=== PATIENT | female | born 1980 | race Caucasian/White ===

== ENCOUNTER → 2016-12-08 | Outpatient (CLI) | payer BC ==
--- NOTE | 2016-12-08 12:12 | US ---
EXAMINATION TYPE: US abdomen complete DATE OF EXAM: 12/08/2016 12:02 PM COMPARISON: NONE CLINICAL HISTORY: K80.42 Gallstones, R11.2 Nausea/Vomiting.Epigastric pain EXAM MEASUREMENTS: Liver Length: 13.0 cm Gallbladder Wall: 0.6 cm CBD: 0.5 cm Spleen: 10.6 cm Right Kidney: 10.3 x 3.5 x 4.7 cm Left Kidney: 10.1 x 4.9 x 4.6 cm Pancreas: wnl Liver: wnl Gallbladder: FRANKIE sign, thickened wall, stones Evidence for sonographic Velez's sign: tenderness CBD: slight dilation Spleen: wnl Right Kidney: wnl Left Kidney: wnl Upper IVC: wnl Abd Aorta: wnl The liver is homogenous. The intrahepatic portion of the IVC and proximal abdominal aorta are within normal limits. Multiple intraluminal gallstones are seen with extensive shadowing. Gallbladder wall appears to be thickened. Common bile duct is is at the upper limits of normal. The visualized portion s of the pancreas are homogenous. The spleen is unremarkable. Kidneys are symmetric and free of hyd ronephrosis. No renal lesions are seen. IMPRESSION: Correlate for acute cholecystitis.
== END | disposition home or self-care (01) ==
LOC: RADUSWWP 10:55
PROVIDERS: ATTEND Family Medicine
DX: K80.42 Calculus of bile duct with acute cholecystitis without obstruction (principal)
CPT/HCPCS: 76700

== ENCOUNTER 2016-12-18 05:46 | Emergency (ER) | payer BC ==
[2016-12-18] MEDS ORDERED: KETOROLAC 60 MG/2 ML VIAL IVP STA (06:03)
[2016-12-18] MEDS ORDERED: DIAZEPAM 5 MG/ML 2 ML SYRINGE IVP STA (06:03)
--- NOTE | 2016-12-18 06:07 | ED ---
General Adult HPI - General Chief complaint: Neck Pain/Injury Stated complaint: Neck pain Time Seen by Provider: 12/18/16 05:50 Source: patient, RN notes reviewed Mode of arrival: ambulatory Limitations: no limitations - History of Present Illness Initial comments: this is a 36-year-old female who presents to the emergency department complaining of left-sided neck pain. Patient states she had her gallbladder out on and ever since she woke up she was having neck pain. Patient states every day since surgery she has vomited except for today she has yet to vomit and she is not nauseous. Patient states that is also irritated her neck and now touching the left side of her neck or left trapezius area causes pain. Patient states the pain is so bad tonight she doesn't even notice any abdominal pain at this time. Patient denies any fever or chills. Patient denies any injury. Patient states she can move her neck but is limited secondary to pain especially looking to the right. Patient denies any numbness or weakness. - Related Data Home Medications Medication Instructions Recorded Confirmed HYDROcodone/APAP 5-325MG [[place] 2 tab PO Q6HR PRN 12/18/16 12/18/16 5-325] Previous Rx's Medication Instructions Recorded Cyclobenzaprine [Flexeril] 10 mg PO TID #20 tab 12/18/16 Ibuprofen [Motrin] 600 mg PO Q6HR PRN #20 tab 12/18/16 Allergies Allergy/AdvReac Type Severity Reaction Status Date / Time No Known Allergies Allergy Verified 12/18/16 05:53 Review of Systems ROS Statement: Those systems with pertinent positive or pertinent negative responses have been documented in the HPI. ROS Other: All systems not noted in ROS Statement are negative. Past Medical History Past Medical History: No Reported History History of Any Multi-Drug Resistant Organisms: None Reported Past Surgical History: Cholecystectomy Past Anesthesia/Blood Transfusion Reactions: No Reported Reaction Past Psychological History: No Psychological Hx Reported Smoking Status: Never smoker Past Alcohol Use History: None Reported Past Drug Use History: None Reported - Past Family History Father Family Medical History: No Reported History General Exam - General Exam Comments Initial Comments: GENERAL Patient is well-developed and well-nourished. Patient is inmoderated distress. EYES Patient's pupils are equal and round. Extraocular motion is intact SKIN Unremarkable NEURO The patient is alert and oriented 3 PYSCH Patient has normal interpersonal interactions. MUSCULOSKELETAL patient has tenderness in the right trapezius muscle up into the neck area. Limitations: no limitations Course Vital Signs 12/18/16 05:50 Temperature 98.9 F Pulse Rate 101 H Respiratory 16 Rate Blood Pressure 137/87 O2 Sat by Pulse 100 Oximetry Medical Decision Making - Medical Decision Making I went back into the room to reevaluate the patient she was feeling better and had better range of motion already. Disposition Clinical Impression: Strain of neck muscle Disposition: HOME SELF-CARE Condition: Good Instructions: Cervical Strain (ED) Prescriptions: Cyclobenzaprine [Flexeril] 10 mg PO TID #20 tab Ibuprofen [Motrin] 600 mg PO Q6HR PRN #20 tab PRN Reason: For pain Referrals: Yamile Ríos MD [Primary Care Provider] - 1-2 days
[2016-12-18 07:15] VITALS: BP 122/58; PULSE 69; RESP 18; TEMP 97.9
== END 2016-12-18 07:14 | disposition home or self-care (01) ==
LOC: EC 05:46
DX: S16.1XXA Strain of muscle, fascia and tendon at neck level, initial encounter (principal); Z90.49 Acquired absence of other specified parts of digestive tract; X58.XXXA Exposure to other specified factors, initial encounter
CPT/HCPCS: 99283; 96374; 96375; J3360; J1885

== ENCOUNTER → 2020-02-19 | Outpatient (CLI) | payer BC ==
--- NOTE | 2020-02-19 10:26 | XR ---
EXAMINATION TYPE: XR cervical spine comp DATE OF EXAM: 02/19/2020 COMPARISON: NONE HISTORY: Pain TECHNIQUE: Four views are submitted. FINDINGS: The odontoid is intact. There are no compression deformities. The prevertebral soft tissue structur es are within normal limits. There is hypertrophic and degenerative change at C5-C6 with posterior s pondylosis. IMPRESSION: 1. Degenerative disc disease C5-C6 correlate with MRI as clinically warranted.
== END | disposition home or self-care (01) ==
LOC: RADXRYALE 09:58
PROVIDERS: ATTEND Physician Assistant Medical
DX: M50.322 Other cervical disc degeneration at C5-C6 level (principal)
CPT/HCPCS: 72050

== ENCOUNTER 2021-04-02 17:41 | Observation (INO) | payer BC ==
--- NOTE | 2021-04-02 18:25 | ED ---
Female Urogenital HPI - General Chief complaint: Vaginal Bleeding Stated complaint: Vaginal Bleeding, 10 wks Time Seen by Provider: 04/02/21 17:52 Source: patient Mode of arrival: wheelchair Limitations: no limitations - History of Present Illness Initial comments: Patient is a 40-year-old female, currently proximally 10 weeks , present ing to the emergency Department with complaints of cramping over the past week as well as bleeding that started yesterday. She states the bleeding has intensified throughout today where she feels like she may be hemorrhaging. . She denies any falls or trauma. She denies any fevers or chills. She states she's been trying to get into her OBs office over the last few weeks but has been unsuccessful, her RATTLING MACHINE TENDER is Dr. Johnson. She denies any chest pain or short of breath. She admits to history of cholecystectomy, no other abdominal surgeries. Before I arrived to the room to question the patient, patient told nurse that she passed a very large clot in the bathroom and feels like she has miscarried. She states she is having some abdominal cramping that feels like labor pains. She feels slightly lightheaded. She believes her blood type is O+. She has no further complaints. - Related Data Home Medications Medication Instructions Recorded Confirmed Mlc-Vryw-Jbnwc Acid 1 cap PO DAILY 04/02/21 04/02/21 [-U Capsule (formulary)] Allergies Allergy/AdvReac Type Severity Reaction Status Date / Time No Known Allergies Allergy Verified 04/02/21 22:06 Review of Systems ROS Statement: Those systems with pertinent positive or pertinent negative responses have been documented in the HPI. ROS Other: All systems not noted in ROS Statement are negative. Past Medical History Past Medical History: No Reported History History of Any Multi-Drug Resistant Organisms: None Reported Past Surgical History: Cholecystectomy Additional Past Surgical History / Comment(s): d&c Past Anesthesia/Blood Transfusion Reactions: No Reported Reaction Past Psychological History: No Psychological Hx Reported Smoking Status: Never smoker Past Alcohol Use History: None Reported Past Drug Use History: None Reported - Past Family History Father Family Medical History: No Reported History General Exam - General Exam Comments Initial Comments: GENERAL: Patient is well-developed and well-nourished. Patient is nontoxic and in mild distress. HEAD: Atraumatic, normocephalic. EYES: Pupils equal round and reactive to light, extraocular movements intact, sclera anicteric, conjunctiva are normal. Eyelids were unremarkable. ENT: Nares patent, oropharynx clear without exudates. Moist mucous membranes. NECK: Normal range of motion, supple without lymphadenopathy or JVD. LUNGS: Unlabored respirations. Breath sounds clear to auscultation bilaterally and equal. No wheezes rales or rhonchi. HEART: Regular rate and rhythm without murmurs, rubs or gallops. ABDOMEN: Soft, tender/cramping over the lower pelvis region normoactive bowel sounds. No guarding, no rebound. No masses appreciated. MUSCULOSKELETAL: Normal extremities with adequate strength and normal range of motion, no pitting or edema. No clubbing or cyanosis. NEUROLOGICAL: Patient is alert and oriented x 3. Motor and sensory are also intact. Cranial nerves II through XII grossly intact. Symmetrical smile. Normal speech, normal gait. PSYCH: Normal mood, normal affect. SKIN: Warm, Dry, normal turgor, no rashes or lesions noted. Limitations: no limitations External exam: Present: normal external exam Speculum exam: Present: vaginal bleeding, other (cervical os is open) Course Vital Signs 04/02/21 04/02/21 04/02/21 17:44 19:33 21:35 Temperature 98.2 F Pulse Rate 89 87 87 Respiratory 18 18 18 Rate Blood Pressure 113/73 121/75 115/82 O2 Sat by Pulse 100 100 99 Oximetry 04/02/21 23:36 Temperature 98.4 F Pulse Rate 80 Respiratory 16 Rate Blood Pressure 118/87 O2 Sat by Pulse 99 Oximetry - Reevaluation(s) Reevaluation #1: 04/02/21 22:35 Patient continues to have heavy vaginal bleeding, cramping, passing large clots. I spoke with Dr. Ayala who agrees to come and see the patient. Waiting on his arrival. Medical Decision Making - Medical Decision Making Patient is a 40-year-old female, currently 10 weeks , presenting with bleeding, severe cramping over the past 1-2 days. Upon arrival at the ER, she did pass a very large clot with fetus attached. Ultrasound confirmed an empty uterus however retained tissue as possible. , previous RATTLING MACHINE TENDER is Dr. Johnson. Patient was told she is considered a new patient as she has not seen OB in over 3 years. Patient's labs are stable, normal white count, hemoglobin stable at 13.5, urine shows no evidence of infection large amount of blood. HCG Quant is 17,000. Upon reexamination, she continues to be passing a large amount of blood and clots, soaking pads every 1/[address] Ayala was contacted who agreed to come and evaluate the patient. Dr. Ayala will take the patient for a D&C tonight. Case discussed with Dr. Cochran. - Lab Data Result diagrams: 04/02/21 18:37 04/02/21 18:37 Lab Results 04/02/21 04/02/21 04/02/21 Range/Units 18:30 18:37 18:37 WBC 9.5 (3.8-10.6) k/uL RBC 4.19 (3.80-5.40) m/uL Hgb 13.5 (11.4-16.0) gm/dL Hct 40.4 (34.0-46.0) % MCV 96.4 (80.0-100.0) fL MCH 32.1 (25.0-35.0) pg MCHC 33.3 (31.0-37.0) g/dL RDW 13.3 (11.5-15.5) % Plt Count 289 (150-450) k/uL MPV 7.2 Neutrophils % 77 % Lymphocytes % 15 % Monocytes % 4 % Eosinophils % 1 % Basophils % 0 % Neutrophils # 7.4 (1.3-7.7) k/uL Lymphocytes # 1.5 (1.0-4.8) k/uL Monocytes # 0.4 (0-1.0) k/uL Eosinophils # 0.1 (0-0.7) k/uL Basophils # 0.0 (0-0.2) k/uL Sodium (137-145) mmol/L Potassium (3.5-5.1) mmol/L Chloride (98-107) mmol/L Carbon Dioxide (22-30) mmol/L Anion Gap mmol/L BUN (7-17) mg/dL Creatinine (0.52-1.04) mg/dL Est GFR (CKD-EPI)AfAm (>60 ml/min/1.73 sqM) Est GFR (CKD-EPI)NonAf (>60 ml/min/1.73 sqM) Glucose (74-99) mg/dL Calcium (8.4-10.2) mg/dL Total Bilirubin (0.2-1.3) mg/dL AST (14-36) U/L ALT (4-34) U/L Alkaline Phosphatase (38-126) U/L Total Protein (6.3-8.2) g/dL Albumin (3.5-5.0) g/dL HCG, Quant mIU/mL Urine Color Light Yellow Urine Appearance Clear (Clear) Urine pH 6.5 (5.0-8.0) Ur Specific [place] 1.010 (1.001-1.035) Urine Protein Negative (Negative) Urine Glucose (UA) Negative (Negative) Urine Ketones Negative (Negative) Urine Blood Large H (Negative) Urine Nitrite Negative (Negative) Urine Bilirubin Negative (Negative) Urine Urobilinogen <2.0 (<2.0) mg/dL Ur Leukocyte Esterase Negative (Negative) Urine RBC >182 H (0-5) /hpf Urine WBC 4 (0-5) /hpf Blood Type O Positive Blood Type Recheck No Previous Record Bld Type Recheck Status [facility] 04/02/21 Range/Units 18:37 WBC (3.8-10.6) k/uL RBC (3.80-5.40) m/uL Hgb (11.4-16.0) gm/dL Hct (34.0-46.0) % MCV (80.0-100.0) fL MCH (25.0-35.0) pg MCHC (31.0-37.0) g/dL RDW (11.5-15.5) % Plt Count (150-450) k/uL MPV Neutrophils % % Lymphocytes % % Monocytes % % Eosinophils % % Basophils % % Neutrophils # (1.3-7.7) k/uL Lymphocytes # (1.0-4.8) k/uL Monocytes # (0-1.0) k/uL Eosinophils # (0-0.7) k/uL Basophils # (0-0.2) k/uL Sodium 135 L (137-145) mmol/L Potassium 3.9 (3.5-5.1) mmol/L Chloride 104 (98-107) mmol/L Carbon Dioxide 23 (22-30) mmol/L Anion Gap 8 mmol/L BUN 15 (7-17) mg/dL Creatinine 0.61 (0.52-1.04) mg/dL Est GFR (CKD-EPI)AfAm >90 (>60 ml/min/1.73 sqM) Est GFR (CKD-EPI)NonAf >90 (>60 ml/min/1.73 sqM) Glucose 99 (74-99) mg/dL Calcium 9.1 (8.4-10.2) mg/dL Total Bilirubin <0.1 L (0.2-1.3) mg/dL AST 25 (14-36) U/L ALT 21 (4-34) U/L Alkaline Phosphatase 97 (38-126) U/L Total Protein 6.7 (6.3-8.2) g/dL Albumin 4.0 (3.5-5.0) g/dL HCG, Quant 56439.3 mIU/mL Urine Color Urine Appearance (Clear) Urine pH (5.0-8.0) Ur Specific [place] (1.001-1.035) Urine Protein (Negative) Urine Glucose (UA) (Negative) Urine Ketones (Negative) Urine Blood (Negative) Urine Nitrite (Negative) Urine Bilirubin (Negative) Urine Urobilinogen (<2.0) mg/dL Ur Leukocyte Esterase (Negative) Urine RBC (0-5) /hpf Urine WBC (0-5) /hpf Blood Type Blood Type Recheck Bld Type Recheck Status Disposition Clinical Impression: Incomplete Disposition: ADMITTED IP TO THIS [facility] Condition: Stable Referrals: None,Stated [Primary Care Provider] - 1-2 days Decision Date: 04/02/21 Decision Time: 22:58
[2021-04-02 18:49] LABS: Basophils % (A) 0 %; Eosinophils # (A) 0.1 k/uL (0-0.7); Eosinophils % (A) 1 %; HCT 40.4 % (34.0-46.0); HGB 13.5 gm/dL (11.4-16.0); Lymphocytes # (A) 1.5 k/uL (1.0-4.8); Lymphocytes % (A) 15 %; MCH 32.1 pg (25.0-35.0); MCHC 33.3 g/dL (31.0-37.0); MCV 96.4 fL (80.0-100.0); Mean Platelet Volume 7.2; Monocytes # (A) 0.4 k/uL (0-1.0); Monocytes % (A) 4 %; Neutrophils # (A) 7.4 k/uL (1.3-7.7); Neutrophils % (A) 77 %; Platelet Count 289 k/uL (150-450); RBC 4.19 m/uL (3.80-5.40); RDW 13.3 % (11.5-15.5); WBC 9.5 k/uL (3.8-10.6)
[2021-04-02 18:56] LABS: ALT 21 U/L (4-34); AST 25 U/L (14-36); African American GFR (CKD) >90 (>60 ml/min/1.73 sqM); Alkaline Phosphatase 97 U/L (38-126); Anion Gap 8 mmol/L; Blood Urea Nitrogen 15 mg/dL (7-17); Calcium 9.1 mg/dL (8.4-10.2); Carbon Dioxide 23 mmol/L (22-30); Chloride 104 mmol/L (98-107); Glucose 99 mg/dL (74-99); Non-African American GFR(CKD) >90 (>60 ml/min/1.73 sqM); Potassium 3.9 mmol/L (3.5-5.1); Sodium 135 mmol/L (137-145); Total Bilirubin <0.1 mg/dL (0.2-1.3); Total Protein 6.7 g/dL (6.3-8.2)
[2021-04-02] MEDS ORDERED: SODIUM CHLORIDE 0.9% 1,000 ML IV STA (19:20)
[2021-04-02 19:36] LABS: HCG,Quantitative Serum 17245.3 mIU/mL
--- NOTE | 2021-04-02 20:03 | US ---
EXAMINATION TYPE: Transabdominal DATE OF EXAM: 04/02/2021 7:34 PM COMPARISON: NONE CLINICAL HISTORY: cramping, heavy bleeding, 10wks. EC patient with 3 days heavy vaginal bleeding and pelvic cramping; , left pelvic tenderness per patient. EXAM PERFORMED: Transabdominal (TA) EXAM MEASUREMENTS: GESTATIONAL AGE / DATING Physician Established: Not yet established Dates by LMP: (10 weeks/5 days) EDC: 10/24/2021 Dates by First Scan: No previous scan here Dates by Current Scan for: no IUP seen MATERNAL ANATOMY Uterus: 17.4 x 6.7 x 5.2cm Right Ovary: 3.65 x 2.2 x 2.7cm; color flow is noted in right ovary Left Ovary: 2.5 x 2.7 x 1.0cm; color flow is noted in left ovary Post CDS / Adnexa: wnl Presence of free fluid: no Presence of corpus luteal cyst: not identified Presence of subchorionic bleed: multiple hypoechoic oval masses seen mid and lower uterus with one co mplex hypoechoic area near internal OS = 1.6 x 2.4 x 1.2cm and one right lateral SANDRA = 2.1 x 1.9 x 0 .9cm. GESTATION / SURVEY CRL: No IUP seen . UTERUS: Complex upper endometrial area is noted = 3.0 x 3.9 x 3.6cm with peripheral color flow associ ated with this area. Anteflexed uterus is also Yolk Sac (normal less than 6mm): not seen Date of LMP: unknown Beta HcG (if available): NA Multiple hypoechoic areas noted in SANDRA and near internal OS with complex area noted in upper endometr ium with vascularity noted. No IUP is seen. No ectopic is seen. IMPRESSION: Empty uterus. No evidence of ovarian torsion. No adnexal mass seen to suggest ectopic .
[2021-04-02 20:15] LABS: Appearance,Urine Clear (Clear); Bilirubin,Urine Negative (Negative); Blood,Urine Large (Negative); Color,Urine Light Yellow; Glucose,Urine (UA) Negative (Negative); Ketones,Urine Negative (Negative); Leukocyte Esterase,Urine Negative (Negative); Nitrite,Urine Negative (Negative); PH, Urine 6.5 (5.0-8.0); Protein,Urine Negative (Negative); RBC,Urine >182 /hpf (0-5); Urobilinogen,Urine <2.0 mg/dL (<2.0); WBC,Urine 4 /hpf (0-5)
[2021-04-02] MEDS ORDERED: KETOROLAC 15 MG/ML 1 ML VIAL IVP STA (21:06)
[2021-04-02] MEDS ORDERED: NALOXONE 0.4 MG/ML 1 ML VIAL IV PRN (22:58)
--- NOTE | 2021-04-02 23:12 | P.HPOB ---
History of Present Illness H&P Date: 04/02/21 Chief Complaint: Vaginal bleeding and This patient is a pleasant 40-year-old 2 para 1 female estimated gestational age approximately 10 weeks who presented to the emergency department about 5:00 this evening with complaints of heavy bleeding and cramping. Patient states that she's approximately 10 weeks and is a former patient of Dr. Colon. She states that she called the office several times this week with spotting and since she not been to the office in a few years she was instructed to go to the emergency department. Evaluation here per the emergency room physician shows that she passed what appears to be products of conception. U nfortunately she continues to bleed heavily and an ultrasound shows what appears to be multiple areas retained products of conception. Is hemodynamically stable but bleeding quite heavy and therefore now presents for further treatment with D&C. Review of Systems Genitourinary: Reports abnormal vaginal bleeding, Reports Past Medical History Past Medical History: No Reported History Additional Past Medical History / Comment(s): Patient had a vaginal delivery about 5 years ago complicated by retained products of conception History of Any Multi-Drug Resistant Organisms: None Reported Past Surgical History: Cholecystectomy Additional Past Surgical History / Comment(s): d&c Past Anesthesia/Blood Transfusion Reactions: No Reported Reaction Past Psychological History: No Psychological Hx Reported Smoking Status: Never smoker Past Alcohol Use History: None Reported Past Drug Use History: None Reported - Past Family History Father Family Medical History: No Reported History Medications and Allergies Home Medications Medication Instructions Recorded Confirmed Type Ghy-Fkvl-Dwvyx Acid 1 cap PO DAILY 04/02/21 04/02/21 History [-U Capsule (formulary)] Allergies Allergy/AdvReac Type Severity Reaction Status Date / Time No Known Allergies Allergy Verified 04/02/21 22:06 Exam Vital Signs Temp Pulse Resp BP Pulse Ox 04/02/21 21:35 87 18 115/82 99 04/02/21 19:33 87 18 121/75 100 04/02/21 17:44 98.2 F 89 18 113/73 100 Intake and Output 04/02/21 04/02/21 04/03/21 14:59 22:59 06:59 Other: Weight 72.575 kg - OBG Physical Exam Abdomen: bowel sounds normal, no diffuse tenderness, no bruit present, no guarding noted, no hepatomegaly, no splenomegaly, no mass Vagina: no discharge Uterus: enlarged Results Result Diagrams: 04/02/21 18:37 04/02/21 18:37 Abnormal Lab Results - Last 24 Hours (Table) 04/02/21 04/02/21 Range/Units 18:37 18:37 Sodium 135 L (137-145) mmol/L Total Bilirubin <0.1 L (0.2-1.3) mg/dL Urine Blood Large H (Negative) Urine RBC >182 H (0-5) /hpf Assessment and Plan Assessment: This is a pleasant 40-year-old 2 para 1 female estimated gestational age 10 weeks with incomplete and significant hemorrhage secondary to retain ed products of conception. Plan is to proceed with suction D&C for treatment at this time. I did discuss with the patient and her the risk of the surgery including risks of infection, bleeding, possible uterine perforation. All the patient's questions are answered and a written consent obtained. (1) Incomplete Current Visit: Yes Status: Acute Code(s): O03.4 - INCOMPLETE SPONTANEOUS ABO RTION WITHOUT COMPLICATION SNOMED Code(s): 857073514
[2021-04-02] MEDS ORDERED: ONDANSETRON 4 MG/2 ML VIAL ONE (23:43)
[2021-04-02] MEDS ORDERED: fentaNYL (PF) 50 MCG/ML 2 ML AMP ONE (23:44)
[2021-04-02] MEDS ORDERED: MIDAZOLAM 2 MG/2 ML VIAL ONE (23:44)
[2021-04-02] MEDS ORDERED: PROPOFOL 10 MG/ML 20 ML VIAL IV ONE (23:44)
[2021-04-02] MEDS ORDERED: SUCCINYLCHOLINE CHLORIDE 100 MG/5 ML SYR IV ONE (23:44)
[2021-04-02] MEDS ORDERED: DEXAMETHASONE SOD PHOSPHATE 4 MG/ML 1 ML VIAL IV ONE (23:45)
[2021-04-02] MEDS ORDERED: IV FLUID CONTINUATION 1,000 ML IV ONE (23:47)
--- NOTE | 2021-04-03 00:13 | P.OP ---
Date of Procedure: 04/03/21 Preoperative Diagnosis: Incomplete Postoperative Diagnosis: Same Procedure(s) Performed: Suction D&C Anesthesia: ELOY Surgeon: Elan Ayala Estimated Blood Loss (ml): 50 Urine output (ml): 25 Pathology: other (Uterine contents) Condition: stable Disposition: PACU Indications for Procedure: Please see dictated H&P for intimate details of this patient's admission. Brief summary this is a 40-year-old 2 para 1 female estimated gestational age 10 weeks presented to the emergency department with complaints of and vaginal bleeding. Patient did pass some tissue that appeared to be products of conception in the ER however continue to bleed heavily an ultrasound showed what appeared to be retained products of conception. She now presents for suction D&C for further treatment. I did discuss in detail the patient and her the risks including risks of infection, bleeding, possible uterine perforation. All the patient's questions are answered written consent obtained. Operative Findings: Uterine contents were consistent with a generous amount of products of conception. Description of Procedure: This patient is taken to the operating room where she is laid in the supine position. She subsequently undergoes general endotracheal anesthesia without incident. With an adequate level of anesthesia she's placed in dorsal lithotomy position. She has a vaginal perineal prep and drape. Examination under anesthesia shows uterus to be mid position approximately 10 weeks size. The bladder is drained for 25 mL of clear urine. Weighted speculum placed the post erior vagina. Anterior lip of the cervix is grabbed with an Allis clamp. Using a 10 curved suction curette easily placed in the uterine cavity and large amount of tissue is removed. All 12 passes are made to no further tissue was noted. Bleeding subsides almost immediately. A gentle but thorough 4 quadrant curettage is then done and again no further tissue was noted. A final pass with the suction curet is done. With this completed the procedure is ended. The Allis clamp and weighted speculum were removed. Patient is awakened from anesthesia and taken recovery room satisfactory condition. All counts are correct 3 there are no complications.
[2021-04-03] MEDS ORDERED: HYDROmorphone 0.5 MG/0.5 ML SYRINGE IVP ONE ×3 (00:20→00:38)
[2021-04-03] MEDS ORDERED: ACETAMINOPHEN TAB 500 MG TAB PO STA (00:29)
[2021-04-03] MEDS ORDERED: IBUPROFEN 600 MG TAB PO PRN (01:14)
[2021-04-03] MEDS ORDERED: ONDANSETRON 4 MG/2 ML VIAL IVP PRN (01:14)
[2021-04-03] MEDS ORDERED: METOCLOPRAMIDE 5 MG/ML 2 ML VIAL IVP SCH (01:30)
[2021-04-03] MEDS: LACTATED RINGERS 1,000 ML IV SCH ×2 (03:04→03:11)
[2021-04-03 03:16] VITALS: RESP 18
[2021-04-03 03:20] VITALS: BP 102/55; PULSE 89; TEMP 97.8
--- NOTE | 2021-04-03 05:53 | P.DS ---
Providers Date of admission: 04/02/21 23:12 Expected date of discharge: 04/03/21 Attending physician: Elan Ayala Primary care physician: Stated None - Discharge Diagnosis(es) (1) Incomplete Current Visit: Yes Status: Acute Hospital Course: Please see dictated H&P and operative note on this patient's admission. Brief summary pleasant 40-year-old 2 para 1 female admitted through the emergency department with vaginal bleeding and and found to have an incomplete . Patient subsequently underwent a suction D&C for tr eatment. She was admitted due to the time of day of the surgery. Patient did well overnight had scant bleeding felt be stable for discharge home follow up with me in about 1 week. Procedures: Suction dilation and curettage Patient Condition at Discharge: Good Plan - Discharge Summary New Discharge Prescriptions: No Action Jdj-Wkyt-Gbfnr Acid [-U Capsule (formulary)] 1 cap PO DAILY Discharge Medication List Bmt-Bzkn-Vsrjn Acid [-U Capsule (formulary)] 1 cap PO DAILY 04/02/21 [History] Follow up Appointment(s)/Referral(s): None,Stated [Primary Care Provider] - 1-2 days Patient Instructions/Handouts: Miscarriage (DC), Dilation and Curettage (DC) Activity/Diet/Wound Care/Special Instructions: No intercourse or anything per vagina for 7 days. Please call if any fever, chills, excessive vaginal bleeding, and/or abdominal pain. Please call my office on Sunday to see me in approximately 1-2 weeks for postop visit. Discharge Disposition: HOME SELF-CARE
[2021-04-04] MEDS ORDERED: ACETAMINOPHEN TAB 325 MG TAB PO PRN (00:15)
== END 2021-04-03 06:48 | disposition home or self-care (01) ==
LOC: EC 17:41 → 4FBP 23:12
PROVIDERS: ADMIT Obstetrics & Gynecology; ATTEND Obstetrics & Gynecology
DX: O03.4 Incomplete spontaneous abortion without complication (principal); O09.521 Supervision of elderly multigravida, first trimester; Z3A.10 10 weeks gestation of pregnancy; Z90.49 Acquired absence of other specified parts of digestive tract
CPT/HCPCS: 58120; 96361; 96374; 99285; 36415; 86900; 86901; 88305; 80053; 85025; 81001; 84702; 76801; G0378; J2250; J1100; J2765; J2405; J3010; J1885; J0330; J2704; J1170

== ENCOUNTER 2021-04-04 05:55 | Emergency (ER) | payer BC ==
[2021-04-04] MEDS ORDERED: SODIUM CHLORIDE 0.9% 500 ML 500 ML IV STA (06:16)
--- NOTE | 2021-04-04 06:20 | ED ---
General Adult HPI - General Chief complaint: Shortness of Breath Stated complaint: Revisit-Post Op, SOB, leg pain Time Seen by Provider: 04/04/21 06:04 Source: patient, family Mode of arrival: wheelchair Limitations: no limitations - History of Present Illness Initial comments: 40-year-old female presents to the emergency room for a chief complaint of pain all over. Patient reports that she was intubated yesterday for a D&C for a 10 week incomplete . Patient states are round 2:00 yesterday she started to get pain all over. States she has chronic neck pain which has worsened. She has pain in her back and chest. Patient also states she feels like she can't get a deep breath. She also has pain in the left leg. Patient reports she is concerned about blood clots. Patient does not want anything for pain. Patient did take an aspirin/Tylenol/caffeine before arrival.Patient has no other complaints at this time including abdominal pain, nausea or vomiting, headache, or visual changes. - Related Data Home Medications Medication Instructions Recorded Confirmed Rle-Ccih-Zjkzk Acid 1 cap PO DAILY 04/02/21 04/02/21 [-U Capsule (formulary)] Allergies Allergy/AdvReac Type Severity Reaction Status Date / Time No Known Allergies Allergy Verified 04/04/21 06:01 Review of Systems ROS Statement: Those systems with pertinent positive or pertinent negative responses have been documented in the HPI. ROS Other: All systems not noted in ROS Statement are negative. Past Medical History Past Medical History: No Reported History Additional Past Medical History / Comment(s): Patient had a vaginal delivery ab out 5 years ago complicated by retained products of conception History of Any Multi-Drug Resistant Organisms: None Reported Past Surgical History: Cholecystectomy Additional Past Surgical History / Comment(s): d&c Past Anesthesia/Blood Transfusion Reactions: No Reported Reaction Past Psychological History: No Psychological Hx Reported Smoking Status: Never smoker Past Alcohol Use History: None Reported Past Drug Use History: None Reported - Past Family History Father Family Medical History: No Reported History Additional Family Medical History / Comment(s): Pt states dad of brain cancer General Exam Limitations: no limitations General appearance: alert, in no apparent distress Head exam: Present: atraumatic Eye exam: Present: normal appearance, PERRL, EOMI. Absent: scleral icterus, conjunctival injection ENT exam: Present: normal exam, mucous membranes moist Neck exam: Present: normal inspection, full ROM. Absent: tenderness Respiratory exam: Present: normal lung sounds bilaterally. Absent: respiratory distress, wheezes Cardiovascular Exam: Present: regular rate, normal rhythm, normal heart sounds GI/Abdominal exam: Present: soft, normal bowel sounds. Absent: distended, tenderness Course Vital Signs 04/04/21 04/04/21 06:01 07:16 Temperature 98.3 F 98.5 F Pulse Rate 91 88 Respiratory 16 16 Rate Blood Pressure 121/82 110/72 O2 Sat by Pulse 100 100 Oximetry EKG Findings - EKG Comments: EKG Findings:: Normal sinus rhythm, ventricular rate 81, MS interval 144, QTC 427 Medical Decision Making - Medical Decision Making Vitals are stable. CBC is stable. Hemoglobin is 10.8 which is down from 13.5 however patient has undergone a D&C. No significant active bleeding. CMP is unremarkable. Troponin is negative. BNP is within normal limits. CT of the chest was obtained which showed no acute pulmonary embolism. Ultrasound of the left lower extremity is negative for DVT. At this time patient is likely sore from surgery. It recommended that she follow up with her doctor. She will need a repeat hemoglobin this week. She should return here for any worsening symptoms. - Lab Data Result diagrams: 04/04/21 06:30 04/04/21 06:34 Lab Results 04/04/21 04/04/21 04/04/21 Range/Units 06:30 06:30 06:34 WBC 7.1 (3.8-10.6) k/uL RBC 3.34 L (3.80-5.40) m/uL Hgb 10.8 L (11.4-16.0) gm/dL Hct 32.2 L (34.0-46.0) % MCV 96.5 (80.0-100.0) fL MCH 32.3 (25.0-35.0) pg MCHC 33.5 (31.0-37.0) g/dL RDW 13.5 (11.5-15.5) % Plt Count 274 (150-450) k/uL MPV 7.3 Neutrophils % 70 % Lymphocytes % 25 % Monocytes % 3 % Eosinophils % 1 % Basophils % 0 % Neutrophils # 4.9 (1.3-7.7) k/uL Lymphocytes # 1.7 (1.0-4.8) k/uL Monocytes # 0.2 (0-1.0) k/uL Eosinophils # 0.1 (0-0.7) k/uL Basophils # 0.0 (0-0.2) k/uL PT 10.2 (9.0-12.0) sec INR 0.9 (<1.2) APTT 22.4 (22.0-30.0) sec Sodium (137-145) mmol/L Potassium (3.5-5.1) mmol/L Chloride (98-107) mmol/L Carbon Dioxide (22-30) mmol/L Anion Gap mmol/L BUN (7-17) mg/dL Creatinine (0.52-1.04) mg/dL Est GFR (CKD-EPI)AfAm (>60 ml/min/1.73 sqM) Est GFR (CKD-EPI)NonAf (>60 ml/min/1.73 sqM) Glucose (74-99) mg/dL Calcium (8.4-10.2) mg/dL Total Bilirubin (0.2-1.3) mg/dL AST (14-36) U/L ALT (4-34) U/L Alkaline Phosphatase (38-126) U/L Troponin I (0.000-0.034) ng/mL NT-Pro-B Natriuret Pep pg/mL Total Protein (6.3-8.2) g/dL Albumin (3.5-5.0) g/dL Blood Type O Positive Blood Type Recheck O Pos Bld Type Recheck Status No Antibody Screen NEGATIVE Spec Expiration Date 04/07/2021 - 232904/04/21 04/04/21 04/04/21 Range/Units 06:34 06:34 06:34 WBC (3.8-10.6) k/uL RBC (3.80-5.40) m/uL Hgb (11.4-16.0) gm/dL Hct (34.0-46.0) % MCV (80.0-100.0) fL MCH (25.0-35.0) pg MCHC (31.0-37.0) g/dL RDW (11.5-15.5) % Plt Count (150-450) k/uL MPV Neutrophils % % Lymphocytes % % Monocytes % % Eosinophils % % Basophils % % Neutrophils # (1.3-7.7) k/uL Lymphocytes # (1.0-4.8) k/uL Monocytes # (0-1.0) k/uL Eosinophils # (0-0.7) k/uL Basophils # (0-0.2) k/uL PT (9.0-12.0) sec INR (<1.2) APTT (22.0-30.0) sec Sodium 137 (137-145) mmol/L Potassium 4.2 (3.5-5.1) mmol/L Chloride 106 (98-107) mmol/L Carbon Dioxide 25 (22-30) mmol/L Anion Gap 6 mmol/L BUN 11 (7-17) mg/dL Creatinine 0.63 (0.52-1.04) mg/dL Est GFR (CKD-EPI)AfAm >90 (>60 ml/min/1.73 sqM) Est GFR (CKD-EPI)NonAf >90 (>60 ml/min/1.73 sqM) Glucose 93 (74-99) mg/dL Calcium 8.9 (8.4-10.2) mg/dL Total Bilirubin 0.2 (0.2-1.3) mg/dL AST 61 H (14-36) U/L ALT 57 H (4-34) U/L Alkaline Phosphatase 88 (38-126) U/L Troponin I <0.012 (0.000-0.034) ng/mL NT-Pro-B Natriuret Pep 41 pg/mL Total Protein 6.4 (6.3-8.2) g/dL Albumin 3.7 (3.5-5.0) g/dL Blood Type Blood Type Recheck Bld Type Recheck Status Antibody Screen Spec Expiration Date Disposition Clinical Impression: Atypical chest pain Disposition: HOME SELF-CARE Condition: Good Instructions (If sedation given, give patient instructions): Chest Wall Pain (ED) Additional Instructions: Take motrin and tylenol for pain. Please follow-up with your doctor this week to repeat your hemoglobin. Return to the emergency room for any worsening symptoms. Is patient prescribed a controlled substance at d/c from ED?: No Referrals: Elan Ayala MD [STAFF PHYSICIAN] - 1-2 days Jory Skinner MD [STAFF PHYSICIAN] - 1-2 days Time of Disposition: 08:23
[2021-04-04] MEDS ORDERED: MORPHINE SULFATE 4 MG/ML SYRINGE IVP STA (07:15)
--- NOTE | 2021-04-04 07:23 | CT ---
CT CHEST FOR PULMONARY EMBOLISM. EXAMINATION TYPE: CT chest angio for PE DATE OF EXAM: 04/04/2021 INDICATION: Post surgical (D&C), SOB CT DLP: 329 mGycm, Automated exposure control for dose reduction was used. CONTRAST: Patient injected with 100 ml mL of Isovue 370. COMPARISON: TECHNIQUE: CT of the chest is performed on a spiral scan at 2 mm thick sections. Study is performed with intravenous contrast timed for evaluation for pulmonary embolism. This will limit additional po rtions of the evaluation. 3-D MIP images reconstructed by the technologist are reviewed on the compu ter in the coronal and sagittal planes. FINDINGS: No persistent filling defects are evident to suggest an acute pulmonary embolism. No mediastinal or hilar adenopathy enlarged by CT criteria is evident. The ascending aorta diameter at the level of the main pulmonary artery is 2.9 cm. The main pulmonary artery diameter at the bifur cation is 2.4 cm. Lung windows are clear. Bilateral breast prostheses are present. Limited CT section through the upper abdomen are unremarkable. IMPRESSIONS: 1. No acute pulmonary embolism
[2021-04-04] MEDS ORDERED: ONDANSETRON 4 MG/2 ML VIAL IVP STA (07:32)
[2021-04-04 07:34] LABS: Basophils % (A) 0 %; Eosinophils # (A) 0.1 k/uL (0-0.7); Eosinophils % (A) 1 %; HCT 32.2 % (34.0-46.0); HGB 10.8 gm/dL (11.4-16.0); Lymphocytes # (A) 1.7 k/uL (1.0-4.8); Lymphocytes % (A) 25 %; MCH 32.3 pg (25.0-35.0); MCHC 33.5 g/dL (31.0-37.0); MCV 96.5 fL (80.0-100.0); Mean Platelet Volume 7.3; Monocytes # (A) 0.2 k/uL (0-1.0); Monocytes % (A) 3 %; Neutrophils # (A) 4.9 k/uL (1.3-7.7); Neutrophils % (A) 70 %; Platelet Count 274 k/uL (150-450); RBC 3.34 m/uL (3.80-5.40); RDW 13.5 % (11.5-15.5); WBC 7.1 k/uL (3.8-10.6)
--- NOTE | 2021-04-04 07:39 | US ---
EXAMINATION TYPE: US venous doppler duplex LE LT DATE OF EXAM: 04/04/2021 6:17 AM COMPARISON: NONE CLINICAL HISTORY: pain. Left leg pain SIDE PERFORMED: Left TECHNIQUE: The lower extremity deep venous system is examined utilizing real time linear array sonog corin with graded compression, doppler sonography and color-flow sonography. VESSELS IMAGED: Common Femoral Vein Deep Femoral Vein Greater Saphenous Vein * Femoral Vein Popliteal Vein Small Saphenous Vein * Proximal Calf Veins (* superficial vessels) Left Leg: Appears negative for DVT IMPRESSION: 1. Left lower extremity ultrasound negative for deep venous thrombosis.
[2021-04-04 07:48] LABS: ALT 57 U/L (4-34); AST 61 U/L (14-36); African American GFR (CKD) >90 (>60 ml/min/1.73 sqM); Albumin 3.7 g/dL (3.5-5.0); Alkaline Phosphatase 88 U/L (38-126); Anion Gap 6 mmol/L; Blood Urea Nitrogen 11 mg/dL (7-17); Calcium 8.9 mg/dL (8.4-10.2); Carbon Dioxide 25 mmol/L (22-30); Chloride 106 mmol/L (98-107); Glucose 93 mg/dL (74-99); Non-African American GFR(CKD) >90 (>60 ml/min/1.73 sqM); Potassium 4.2 mmol/L (3.5-5.1); Sodium 137 mmol/L (137-145); Total Bilirubin 0.2 mg/dL (0.2-1.3); Total Protein 6.4 g/dL (6.3-8.2)
[2021-04-04 07:49] LABS: INR 0.9 (<1.2); Partial Thromboplastin Time 22.4 sec (22.0-30.0); Prothrombin Time 10.2 sec (9.0-12.0)
[2021-04-04 08:49] VITALS: BP 115/72; PULSE 73; RESP 17; TEMP 98.1
== END 2021-04-04 08:49 | disposition home or self-care (01) ==
LOC: EC 05:55
DX: R07.89 Other chest pain (principal); R06.02 Shortness of breath; M54.2 Cervicalgia; M54.9 Dorsalgia, unspecified; M79.605 Pain in left leg
CPT/HCPCS: 36415; 93005; 86900; 86901; 83880; 80053; 84484; 85025; 85610; 85730; 86850; 93971; 71275; 96374; 96375; 96361; 99285; J2270; J2405; Q9967

== ENCOUNTER 2022-10-27 13:03 | Emergency (ER) | payer BC ==
[2022-10-27 13:43] VITALS: RESP 20; TEMP 98.5
--- NOTE | 2022-10-27 14:04 | ED ---
Abdominal Pain HPI - General Source: patient, RN notes reviewed Mode of arrival: ambulatory Limitations: no limitations <Mal Martinez - Last Filed: 10/27/22 14:03> - General Source: patient, RN notes reviewed, old records reviewed <Zack Leigh - Last Filed: 10/27/22 22:45> - General Chief Complaint: Abdominal Pain Stated Complaint: Liver Complications,Sent by PCP Time Seen by Provider: 10/27/22 14:03 - History of Present Illness Initial Comments: 42-year-old female presents emergency Department with chief complaint of abdominal pain, abnormal liver enzymes. Patient states she been having increasing symptoms for a while but states any makes her symptoms worse. Patient states she's been seen her PCP who ordered remembers from [facility] liver enzymes have significant elevated. She has had a prior cholecystectomy [place] [address] Stanton. Patient states even after her surgery she was still having discomfort. Patient states even went to the extreme of having her breast implants removed she got was from her breast implants. Patient denies any alcohol use denies drug use no IV drug user use (Mal Martinez) Patient is a 42-year-old female who presents emergency department over concern for acute on chronic abdominal pain. Has been having episodes for years but this seemed more frequent lately. Has had elevated liver enzymes as well. Currently has no acute complaints. Follows up with Dr. Dwyer of GI next month. Has no other acute complaints at this time. Has a history of a cholecystectomy. States the pain is mostly epigastric with some radiation to the back. Says it was some nausea but no emesis. Last flare was yesterday. Patient's been followed up with her PCP, and further liver studies are being tested. Has no other acute complaints this time. Presents for further evaluation at this time. Initially seen as a quick note. (Zack Leigh) - Related Data Home Medications Medication Instructions Recorded Confirmed No Known Home Medications 10/27/22 10/27/22 Allergies Allergy/AdvReac Type Severity Reaction Status Date / Time barley Allergy Allergy Verified 10/27/22 20:58 Testing casein Allergy Allergy Verified 10/27/22 20:58 Testing corn Allergy Allergy Verified 10/27/22 20:58 Testing Milk Containing Products Allergy Allergy Verified 10/27/22 20:58 Testing oats Allergy Allergy Verified 10/27/22 20:58 Testing tomato Allergy Allergy Verified 10/27/22 20:58 Testing wheat Allergy Allergy Verified 10/27/22 20:58 Testing yeast, dried Allergy Allergy Verified 10/27/22 20:58 Testing Review of Systems ROS Other: All systems not noted in ROS Statement are negative. <Mal Martinez - Last Filed: 10/27/22 14:03> ROS Other: All systems not noted in ROS Statement are negative. <Zack Leigh - Last Filed: 10/27/22 22:45> ROS Statement: Those systems with pertinent positive or pertinent negative responses have been documented in the HPI. Review of Systems: CONST: Denies fever EYES: Denies blurry vision ENT: Denies nasal congestion C/V: Denies Chest pain RESP: Denies shortness of breath GI: No current abdominal pain but endorses abdominal pain is the primary complaint : Denies dysuria SKIN: Denies rash. MSK: Denies joint pain. NEURO: Denies headache (Zack Leigh) Past Medical History Past Medical History: Cancer Additional Past Medical History / Comment(s): Patient had a vaginal delivery about 5 years ago complicated by retained products of conception, SKIN CANCER History of Any Multi-Drug Resistant Organisms: None Reported Past Surgical History: Cholecystectomy Additional Past Surgical History / Comment(s): d&c Past Anesthesia/Blood Transfusion Reactions: No Reported Reaction Past Psychological History: No Psychological Hx Reported Smoking Status: Never smoker Past Alcohol Use History: None Reported Past Drug Use History: None Reported - Past Family History Father Family Medical History: No Reported History Additional Family Medical History / Comment(s): Pt states dad of brain cancer <Mal Martinez - Last Filed: 10/27/22 14:03> General Exam Limitations: no limitations <Mal Martinez - Last Filed: 10/27/22 14:03> <Zack Leigh - Last Filed: 10/27/22 22:45> - General Exam Comments Initial Comments: Visual Physical Exam Vital signs reviewed General: Well-appearing, nontoxic, no acute distress. Head: Normocephalic, atraumatic Eyes: PERRLA, EOMI ENT: Airway patent Chest: Nonlabored breathing Skin: No visual rash, normal skin tone Neuro: Alert and oriented 3 Musculoskeletal: No gross abnormalities (Mal Martinez) General: Appears in no acute distress. HEAD: Normal with no signs of head trauma. EYES: PERRLA, EOMI, conjunctiva normal, no discharge. ENT: Hearing grossly intact, normal oropharynx. RESPIRATORY: Clear breath sounds bilaterally. No wheezes, rales, or rhonchi. C/V: Regular rate and rhythm. S1 and S2 auscultated, peripheral pulses 2+ and intact throughout ABD: Abd is soft, nontender, nondistended EXT: Normal range of motion, no obvious deformity SKIN: No rashes or lesions observed on exposed skin. NEURO: Alert and oriented 4. (Zack Leigh) Course Vital Signs 10/27/22 10/27/22 13:40 21:56 Temperature 98.5 F Pulse Rate 120 H 98 Respiratory 20 20 Rate Blood Pressure 131/90 128/78 O2 Sat by Pulse 98 98 Oximetry Medical Decision Making - Lab Data Result diagrams: 10/27/22 14:30 10/27/22 14:30 <Zack Leigh - Last Filed: 10/27/22 22:45> - Medical Decision Making Was pt. sent in by a medical professional or institution (, PA, CATHEAD OPERATOR, urgent care, hospital, or jail...) When possible be specific @ -No Did you speak to anyone other than the patient for history (EMS, parent, family, police, friend...)? What history was obtained from this source @ -No Did you review nursing and triage notes (agree or disagree)? Why? @ -I reviewed and agree with nursing and triage notes. Also reviewed the quick note which i agree with. Were old charts reviewed (outside hosp., previous admission, EMS record, old EKG, old radiological studies, urgent care reports/EKG's, jail records)? Report findings @ -Prior laboratory studies from recent visits outpatient from this month were reviewed. Differential Diagnosis (chest pain, altered mental status, abdominal pain women, abdominal pain men, vaginal bleeding, weakness, fever, dyspnea, syncope, headache, dizziness, GI bleed, back pain, seizure, CVA, palpatations, mental health, musculoskeletal)? @ -Differential Abdominal Pain Women: Appendicitis, Cholecystitis, diverticulosis, ischemic bowel, pancreatitis, hepatitis, UTI, gastroenteritis, AAA, incarcerated hernia, bowel obstruction, constipation, inflammatory bowel, hepatitis, peptic ulcer disease, splenic infarction, perforated viscus, vulvitis, ovarian torsion, PID, kidney stone, placenta abruption, this is not meant to be an all-inclusive list EKG interpreted by me (3pts min.). @ -As above X-rays interpreted by me (1pt min.). @ -None done CT interpreted by me (1pt min.). @ -CT remarkable for showing cholecystectomy but no obvious findings otherwise. U/S interpreted by me (1pt. min.). @ -None done What testing was considered but not performed or refused? (CT, X-rays, U/S, labs)? Why? @ -None What meds were considered but not given or refused? Why? @ -None Did you discuss the management of the patient with other professionals (professionals i.e. , PA, CATHEAD OPERATOR, lab, RT, psych nurse, delinquency prevention social worker, farm crew member, teacher, freedom of information officer, registered nurse hh case manager)? Give summary @ -No Was smoking cessation discussed for >3mins.? @ -No Was critical care preformed (if so, how long)? @ -No Were there social determinants of health that impacted care today? How? (Homelessness, low income, unemployed, alcoholism, drug addiction, transportation, low edu. Level, literacy, decrease access to med. care, senior living, rehab)? @ -No Was there de-escalation of care discussed even if they declined (Discuss DNR or withdrawal of care, Hospice)? DNR status @ -No What co-morbidities impacted this encounter? (DM, HTN, Smoking, COPD, CAD, Cancer, CVA, ARF, Chemo, Hep., AIDS, mental health diagnosis, sleep apnea, morb id obesity)? @ -Chronic abdominal pain. Was patient admitted / discharged? Hospital course, mention meds given and route, prescriptions, significant lab abnormalities, going to OR and other pertinent info. @ -Based on the patient's presentation and physical exam, she presents complaining of acute on chronic abdominal pain but currently does not have the pain. He has been having episodes for years but they're more frequent lately. Also palpation that noticed that the patient's liver function studies appear to be elevated. They overall appear to be improving. Last flare was a few days ago. No other acute complaints at this time. Came in to be evaluated if she does not follow up with a stomach specialist for 1 month. Abdominal labs were obtained while the patient was in triage and were remarkable for elevated LFTs and alk phos in the setting of a cholecystectomy. Cholecystectomy was done in 2017. LFTs are improved from [address] prior [address] imaging of the abdomen and pelvis.: Ultrasound was obtained and showed no dilated ducts a normal pancreas. Therefore did recommend we obtain a screening EKG as well as CT of th e and pelvis which she was in agreement. EKG was unremarkable. CT of the abdomen pelvis showed no obvious findings to explain her symptoms. I did update the patient. Remains a symptomatic at this time. She'll be discharged home at this time with strict follow-up instructions and return precautions. She was in agreement this plan. She'll obtain Pepcid [id number] take on a daily basis. We discussed she likely requires an EGD and follow-up with GI which she already has an appointment next month. I instructed the patient to follow up with their PCP in the next 1-3 days. I explained that the patient should return to the emergency department if they experience any worsening symptoms. Strict return precautions were discussed with the patient. The patient expressed understanding of these instructions. I answered all questions that the patient had. The patient was discharged home in good condition with their prescriptions and follow up information. Undiagnosed new problem with uncertain prognosis? @ -No Drug Therapy requiring intensive monitoring for toxicity (Heparin, Nitro, Insulin, Cardizem)? @ -No Were any procedures done? @ -No Diagnosis/symptom? @ -Abdominal pain of unknown etiology Acute, or Chronic, or Acute on Chronic? @ -Chronic Uncomplicated (without systemic symptoms) or Complicated (systemic symptoms)? @ -Uncomplicated Side effects of treatment? @ -No Exacerbation, Progression, or Severe Exacerbation? @ -No Poses a threat to life or bodily function? How? (Chest pain, [place], CA, pneumonia, PE, COPD, DKA, ARF, appy, cholecystitis, CVA, Diverticulitis, Homicidal, Suicidal, threat to staff... and all critical care pts) @ -No Diagnosis/symptom? @ -Elevated LFTs of unknown etiology Acute, or Chronic, or Acute on Chronic? @ -Acute on chronic Uncomplicated (without systemic symptoms) or Complicated (systemic symptoms)? @ -Uncomplicated Side effects of treatment? @ -none Exacerbation, Progression, or Severe Exacerbation] @ -no Poses a threat to life or bodily function? @ -no (Zack Leigh) - Lab Data Lab Results 03/31/23 03/31/23 03/31/23 Range/Units 14:30 14:30 14:30 WBC 6.3 (3.8-10.6) k/uL RBC 4.81 (3.80-5.40) m/uL Hgb 14.7 (11.4-16.0) gm/dL Hct 44.5 (34.0-46.0) % MCV 92.6 (80.0-100.0) fL MCH 30.5 (25.0-35.0) pg MCHC 33.0 (31.0-37.0) g/dL RDW 12.6 (11.5-15.5) % Plt Count 215 (150-450) k/uL MPV 8.4 Neutrophils % 75 % Lymphocytes % 19 % Monocytes % 4 % Eosinophils % 1 % Basophils % 0 % Neutrophils # 4.7 (1.3-7.7) k/uL Lymphocytes # 1.2 (1.0-4.8) k/uL Monocytes # 0.3 (0-1.0) k/uL Eosinophils # 0.1 (0-0.7) k/uL Basophils # 0.0 (0-0.2) k/uL Sodium 139 (137-145) mmol/L Potassium 4.5 (3.5-5.1) mmol/L Chloride 105 (98-107) mmol/L Carbon Dioxide 24 (22-30) mmol/L Anion Gap 10 mmol/L BUN 11 (7-17) mg/dL Creatinine 0.69 (0.52-1.04) mg/dL Est GFR (CKD-EPI)AfAm >90 (>60 ml/min/1.73 sqM) Est GFR (CKD-EPI)NonAf >90 (>60 ml/min/1.73 sqM) Glucose 93 (74-99) mg/dL Plasma Lactic Acid Alexander (0.7-2.0) mmol/L Calcium 9.4 (8.4-10.2) mg/dL Total Bilirubin 0.5 (0.2-1.3) mg/dL GGT 316 H (12-43) U/L AST 122 H (14-36) U/L ALT 508 H (4-34) U/L Alkaline Phosphatase 243 H (38-126) U/L Total Protein 7.5 (6.3-8.2) g/dL Albumin 4.5 (3.5-5.0) g/dL Amylase 66 (30-110) U/L Lipase 64 (23-300) U/L Urine Color Yellow Urine Appearance Cloudy H (Clear) Urine pH 5.5 (5.0-8.0) Ur Specific [place] 1.024 (1.001-1.035) Urine Protein Trace H (Negative) Urine Glucose (UA) Negative (Negative) Urine Ketones Trace H (Negative) Urine Blood Negative (Negative) Urine Nitrite Negative (Negative) Urine Bilirubin Negative (Negative) Urine Urobilinogen 2.0 (<2.0) mg/dL Ur Leukocyte Esterase Moderate H (Negative) Urine WBC 2 (0-5) /hpf Ur Squamous Epith Cells 8 H (0-4) /hpf Urine Mucus Many H (None) /hpf 10/27/22 Range/Units 14:30 WBC (3.8-10.6) k/uL RBC (3.80-5.40) m/uL Hgb (11.4-16.0) gm/dL Hct (34.0-46.0) % MCV (80.0-100.0) fL MCH (25.0-35.0) pg MCHC (31.0-37.0) g/dL RDW (11.5-15.5) % Plt Count (150-450) k/uL MPV Neutrophils % % Lymphocytes % % Monocytes % % Eosinophils % % Basophils % % Neutrophils # (1.3-7.7) k/uL Lymphocytes # (1.0-4.8) k/uL Monocytes # (0-1.0) k/uL Eosinophils # (0-0.7) k/uL Basophils # (0-0.2) k/uL Sodium (137-145) mmol/L Potassium (3.5-5.1) mmol/L Chloride (98-107) mmol/L Carbon Dioxide (22-30) mmol/L Anion Gap mmol/L BUN (7-17) mg/dL Creatinine (0.52-1.04) mg/dL Est GFR (CKD-EPI)AfAm (>60 ml/min/1.73 sqM) Est GFR (CKD-EPI)NonAf (>60 ml/min/1.73 sqM) Glucose (74-99) mg/dL Plasma Lactic Acid Alexander 0.9 (0.7-2.0) mmol/L Calcium (8.4-10.2) mg/dL Total Bilirubin (0.2-1.3) mg/dL GGT (12-43) U/L AST (14-36) U/L ALT (4-34) U/L Alkaline Phosphatase (38-126) U/L Total Protein (6.3-8.2) g/dL Albumin (3.5-5.0) g/dL Amylase (30-110) U/L Lipase (23-300) U/L Urine Color Urine Appearance (Clear) Urine pH (5.0-8.0) Ur Specific [place] (1.001-1.035) Urine Protein (Negative) Urine Glucose (UA) (Negative) Urine Ketones (Negative) Urine Blood (Negative) Urine Nitrite (Negative) Urine Bilirubin (Negative) Urine Urobilinogen (<2.0) mg/dL Ur Leukocyte Esterase (Negative) Urine WBC (0-5) /hpf Ur Squamous Epith Cells (0-4) /hpf Urine Mucus (None) /hpf Disposition <Mal Martinez - Last Filed: 10/27/22 14:03> Is patient prescribed a controlled substance at d/c from ED?: No Time of Disposition: 20:51 <Zack Leigh - Last Filed: 10/27/22 22:45> Clinical Impression: Chronic abdominal pain, Elevated LFTs Disposition: HOME SELF-CARE Condition: Good Instructions (If sedation given, give patient instructions): Abdominal Pain (ED) Referrals: Yamile Ríos MD [Primary Care Provider] - 1-2 days Luciana Dwyer MD [STAFF PHYSICIAN] - 1-2 days
[2022-10-27 15:24] LABS: Basophils % (A) 0 %; Eosinophils # (A) 0.1 k/uL (0-0.7); Eosinophils % (A) 1 %; HCT 44.5 % (34.0-46.0); HGB 14.7 gm/dL (11.4-16.0); Lymphocytes # (A) 1.2 k/uL (1.0-4.8); Lymphocytes % (A) 19 %; MCH 30.5 pg (25.0-35.0); MCV 92.6 fL (80.0-100.0); Mean Platelet Volume 8.4; Monocytes # (A) 0.3 k/uL (0-1.0); Monocytes % (A) 4 %; Neutrophils # (A) 4.7 k/uL (1.3-7.7); Neutrophils % (A) 75 %; Platelet Count 215 k/uL (150-450); RBC 4.81 m/uL (3.80-5.40); RDW 12.6 % (11.5-15.5); WBC 6.3 k/uL (3.8-10.6)
[2022-10-27 15:44] LABS: ALT 508 U/L (4-34); AST 122 U/L (14-36); African American GFR (CKD) >90 (>60 ml/min/1.73 sqM); Albumin 4.5 g/dL (3.5-5.0); Alkaline Phosphatase 243 U/L (38-126); Amylase 66 U/L (30-110); Anion Gap 10 mmol/L; Blood Urea Nitrogen 11 mg/dL (7-17); Calcium 9.4 mg/dL (8.4-10.2); Carbon Dioxide 24 mmol/L (22-30); Chloride 105 mmol/L (98-107); GGT 316 U/L (12-43); Glucose 93 mg/dL (74-99); Lipase 64 U/L (23-300); Non-African American GFR(CKD) >90 (>60 ml/min/1.73 sqM); Potassium 4.5 mmol/L (3.5-5.1); Sodium 139 mmol/L (137-145); Total Bilirubin 0.5 mg/dL (0.2-1.3); Total Protein 7.5 g/dL (6.3-8.2)
[2022-10-27 16:01] LABS: Appearance,Urine Cloudy (Clear); Bilirubin,Urine Negative (Negative); Blood,Urine Negative (Negative); Color,Urine Yellow; Glucose,Urine (UA) Negative (Negative); Ketones,Urine Trace (Negative); Leukocyte Esterase,Urine Moderate (Negative); Mucus,Urine Many /hpf; Nitrite,Urine Negative (Negative); PH, Urine 5.5 (5.0-8.0); Protein,Urine Trace (Negative); Specific Gravity,Urine 1.024 (1.001-1.035); Squamous Epithelial Cell,Urine 8 /hpf (0-4); WBC,Urine 2 /hpf (0-5)
--- NOTE | 2022-10-27 18:18 | US ---
EXAMINATION TYPE: US gallbladder DATE OF EXAM: 10/27/2022 COMPARISON: 12/08/2016 CLINICAL HISTORY: Epigastric pain, elevated LFTs. TECHNIQUE: Multiple sonographic images of the right upper quadrant are obtained. FINDINGS: EXAM MEASUREMENTS: Liver Length: 10.3 cm Gallbladder Wall: -- cm CBD: 0.55 cm Right Kidney: 9.5 x 3.9 x 3.9 cm Pancreas: wnl Liver: wnl Gallbladder: Surgically absent Evidence for sonographic Velez's sign: No CBD: wnl Right Kidney: wnl No demonstrated abnormality. IMPRESSION: There is cholecystectomy. No dilated ducts. Normal pancreas.:
[2022-10-27] MEDS ORDERED: SODIUM CHLORIDE 0.9% 1,000 ML IV STA (19:08)
--- NOTE | 2022-10-27 20:38 | CT ---
EXAMINATION TYPE: CT abdomen pelvis w con DATE OF EXAM: 10/27/2022 COMPARISON: None HISTORY: abdominal pain, elevated liver enzymes CT DLP: 772.1 mGycm Automated exposure control for dose reduction was used. CONTRAST: Performed with IV Contrast, patient injected with 100 cc mL of Isovue 370. Images obtained from the diaphragm to the floor the pelvis with the IV contrast. Lung bases are clear. No pleural effusion. Heart size is normal. No pericardial effusion. There are clips from cholecystectomy. Liver spleen and stomach pancreas appear intact. The bile ducts are not dilated. There is no adrenal mass. Kidneys show satisfactory contrast opacification. No hydronephrosis. Delaye d images show normal renal excretion. No retroperitoneal adenopathy. The bladder distends smoothly. N o inguinal hernia. There is small amount of free fluid in the pelvis. No pelvic mass. There is no mesenteric edema. No ascites or free air. No sign of a bowel obstruction. There is air-fi lled posterior appendix which appears normal. The lumbar vertebrae have normal alignment. Posterior elements are intact with no compression fractur e. Facet joints are intact. Uterus is anteverted. IMPRESSION: Tiny amount of free fluid in the cul-de-sac. Otherwise negative exam. Normal appendix.
[2022-10-27 21:57] VITALS: BP 128/78; PULSE 98
[2022-10-28 11:17] LABS: Hepatitis A Antibody IgM Nonreactive (Nonreactive); Hepatitis B Core IgM Nonreactive (Nonreactive); Hepatitis B Surface Antigen Nonreactive (Nonreactive); Hepatitis C IgG Antibody Nonreactive (Nonreactive)
== END 2022-10-27 22:01 | disposition home or self-care (01) ==
LOC: EC 13:03
DX: G89.29 Other chronic pain (principal); R74.01 Elevation of levels of liver transaminase levels; Z91.011 Allergy to milk products; Z91.018 Allergy to other foods
CPT/HCPCS: 36415; 80053; 80074; 82150; 82977; 83605; 83690; 85025; 81001; 76705; 74177; 99284; 96360; Q9967

== ENCOUNTER → 2022-12-04 | Outpatient (CLI) | payer BC ==
[2022-12-04 19:43] LABS: Basophils # (A) 0.03 X 10*3/uL (0.00-0.10); Basophils % (A) 0.7 %; Eosinophils # (A) 0.08 X 10*3/uL (0.04-0.35); Eosinophils % (A) 1.8 %; HCT 41.4 % (37.2-46.3); HGB 13.3 g/dL (12.0-15.0); Immature Grans, Automated 0.2 %; Lymphocytes # (A) 1.24 X 10*3/uL (0.90-5.00); Lymphocytes % (A) 27.4 %; MCH 30.2 pg (27.0-32.0); MCHC 32.1 g/dL (32.0-37.0); MCV 94.1 fL (80.0-97.0); Mean Platelet Volume 10.8 fL (9.5-12.2); Monocytes # (A) 0.31 X 10*3/uL (0.20-1.00); Monocytes % (A) 6.9 %; NRBC Per 100 WBC 0 /100 WBCS (0.0-0.0); Neutrophils # (A) 2.85 X 10*3/uL (1.80-7.70); Platelet Count 238 X 10*3/uL (140-440); RDW 12.6 % (11.5-14.5); WBC 4.52 X 10*3/uL (4.50-10.00)
[2022-12-04 20:50] LABS: African American GFR (CKD) 98.1 (60.0-200.0); Albumin 4.7 g/dL (3.8-4.9); Albumin/Globulin Ratio 1.91 (1.60-3.17); Anion Gap 14.5 mmol/L (10.00-18.00); BUN/Creat Ratio 12.22 Ratio (12.00-20.00); Blood Urea Nitrogen 10.5 mg/dL (9.0-27.0); Calcium 9.6 mg/dL (8.7-10.3); Carbon Dioxide 23.3 mmol/L (20.0-27.5); Globulin 2.5 g/dL (1.6-3.3); Non-African American GFR(CKD) 84.6 (60.0-200.0); Potassium 4.5 mmol/L (3.5-5.5); Total Bilirubin 0.5 mg/dL (0.30-1.20); Total Protein 7.1 g/dL (6.2-8.2)
== END | disposition home or self-care (01) ==
LOC: LABWHC1 10:16
PROVIDERS: ATTEND Nurse Practitioner Family
DX: R74.01 Elevation of levels of liver transaminase levels (principal); R10.12 Left upper quadrant pain
CPT/HCPCS: 80053; 85025

== ENCOUNTER → 2022-12-11 | Outpatient (CLI) | payer BC ==
--- NOTE | 2022-12-11 10:04 | MR ---
EXAMINATION TYPE: MR MRCP DATE OF EXAM: 12/11/2022 8:13 AM CLINICAL INDICATION:Female, 42 years old with history of R74.01 elevation of levels of liver transami nase levels; COMPARISON: CT abdomen 10/27/2022 TECHNIQUE: Multi planar, T2-weighted imaging with and without fat saturation and chemical shift imag ing was performed of the abdomen. Then, heavily T2 weighted imaging (half-Fourier acquisition single- shot turbo spin-echo) was utilized in order to study the biliary system. Maximum intensity projectio n images were reconstructed from the original data of the biliary tree. 3D images were created on [employer] work station. No Gadolinium given. FINDINGS: MRCP: The intrahepatic ducts have a normal appearance. The common bile duct at the level of the zaldivar creatic head measures 6 mm in size. The common hepatic duct measures 4 mm in size. The pancreatic du ct is normal. The gallbladder appears surgically absent with small cystic duct remnant present with possible layeri ng gallstones in the remnant. There are layering gallstones within the distal common bile duct. There is at least 3-4 stones present. Measuring in totality 10 x 3 mm Abdomen: Liver: Signal loss on chemical shift of phase imaging. Pancreas: No suspicious mass. The the common pancreatic duct is unremarkable. Spleen: Unremarkable. Adrenal glands: Unremarkable. Kidneys: Unremarkable. Stomach and Bowel: Unremarkable as visualized. Peritoneum: No evidence of pneumoperitoneum, free fluid, or adenopathy. Vasculature: Unremarkable. No aortic aneurysm. Abdominal wall: Fat-containing buccal hernia.. Musculoskeletal: The osseous structures appear intact. IMPRESSION: 1. Multiple layering stones within the distal common bile duct. At least 3-4 stones may be present. 2. No evidence to suggest ductal stricture or biliary ductal dilatation. 3. Hepatic steatosis. 4. Cystic duct remnant with possible layering stones.
== END | disposition home or self-care (01) ==
LOC: RADMRIMAIN 07:21
PROVIDERS: ATTEND Internal Medicine Gastroenterology
DX: K76.0 Fatty (change of) liver, not elsewhere classified (principal); K80.50 Calculus of bile duct without cholangitis or cholecystitis without obstruction; K91.5 Postcholecystectomy syndrome; R74.01 Elevation of levels of liver transaminase levels
CPT/HCPCS: 74181; 80053; 85025

== ENCOUNTER 2022-12-15 05:32 | Day surgery (SDC) | payer BC ==
[2022-12-14 08:39] VITALS: BMI 25.7
[2022-12-15] MEDS ORDERED: LACTATED RINGERS 1,000 ML IV SCH (05:41)
[2022-12-15] MEDS ORDERED: INDOMETHACIN 100 MG SUPPOSITORY RECTAL ONE (06:00)
[2022-12-15] MEDS ORDERED: LEVOFLOXACIN 500MG-D5W PMX 500 MG in DEXTROSE/WATER 1 100ML.BAG IVPB ONE (06:00)
[2022-12-15 06:12] VITALS: TEMP 97.6
[2022-12-15] MEDS ORDERED: LIDOCAINE 1% (10MG/ML) FOR IV START INTRADERMA ONE (06:26)
[2022-12-15 06:35] LABS: HCT 39.3 % (34.0-46.0); HGB 13.1 gm/dL (11.4-16.0); MCH 31.6 pg (25.0-35.0); MCHC 33.3 g/dL (31.0-37.0); MCV 94.9 fL (80.0-100.0); Mean Platelet Volume 8.7; Platelet Count 188 k/uL (150-450); RBC 4.14 m/uL (3.80-5.40); RDW 12.7 % (11.5-15.5); WBC 4.5 k/uL (3.8-10.6)
[2022-12-15] MEDS ORDERED: ONDANSETRON 4 MG/2 ML VIAL IVP ONE (06:56)
[2022-12-15] MEDS ORDERED: ONDANSETRON 4 MG/2 ML VIAL ONE (06:57)
[2022-12-15 06:59] LABS: INR 1.1 (<1.2); Prothrombin Time 11.2 sec (9.0-12.0)
[2022-12-15] MEDS ORDERED: DEXAMETHASONE SOD PHOSPHATE 4 MG/ML 1 ML VIAL IVP ONE (07:00)
[2022-12-15 07:03] LABS: ALT 97 U/L (4-34); AST 31 U/L (14-36); African American GFR (CKD) >90 (>60 ml/min/1.73 sqM); Albumin 3.8 g/dL (3.5-5.0); Alkaline Phosphatase 121 U/L (38-126); Anion Gap 7 mmol/L; Blood Urea Nitrogen 10 mg/dL (7-17); Calcium 8.4 mg/dL (8.4-10.2); Carbon Dioxide 28 mmol/L (22-30); Chloride 104 mmol/L (98-107); Glucose 97 mg/dL (74-99); Non-African American GFR(CKD) >90 (>60 ml/min/1.73 sqM); Potassium 3.7 mmol/L (3.5-5.1); Sodium 139 mmol/L (137-145); Total Bilirubin 0.2 mg/dL (0.2-1.3); Total Protein 6.4 g/dL (6.3-8.2)
[2022-12-15] MEDS ORDERED: fentaNYL (PF) 50 MCG/ML 2 ML AMP ONE (07:20)
[2022-12-15] MEDS ORDERED: MIDAZOLAM 2 MG/2 ML VIAL ONE (07:20)
[2022-12-15] MEDS ORDERED: KETAMINE 10 MG/ML 20 ML VIAL ONE (07:20)
[2022-12-15] MEDS ORDERED: LIDOCAINE 2% INJ 20 MG/ML (2 ML VIAL) ONE (07:20)
[2022-12-15] MEDS ORDERED: SCOPOLAMINE 1 MG/72 HR PATCH TRANSDERM ONE (07:20)
[2022-12-15] MEDS ORDERED: PROPOFOL 10 MG/ML 20 ML VIAL IV ONE (07:20)
[2022-12-15] MEDS ORDERED: IOPAMIDOL-300 100ML BTL INJ ONE (07:54)
--- NOTE | 2022-12-15 07:56 | P.PCN ---
Date of Procedure: 12/15/22 Procedure(s) Performed: Brief history: Patient is a 42 year-old pleasant lady scheduled for an ERCP as part of evaluation of abdominal pain and off for the last 6 months duration. Lately has been progressively getting worse and has been having symptoms on a regular basis. She has remote history of gallbladder surgery many years ago for symptomatic gallstones .. Recently she had an MRCP done revealed multiple small stones in the distal common bile duct measuring 3 mm in size. She is hence scheduled for an ERCP for CBD stone extraction. Procedure performed: ERCP with biliary sphincterotomy and balloon stone extraction Preoperative diagnoses: Severe epigastric and right upper quadrant abdominal pa in and choledocholithiasis on MRCP IV sedation per anesthesia: Procedure: After informed consent was obtained from the patient and after the risks benefits and complications including bleeding perforation and pancreatitis explained in detail the patient was brought into the endoscopy unit. The patient was placed in prone position and IV conscious sedation was administered by anesthesia under continuous monitoring. The Olympus side-viewing duodenoscope was then inserted into the mouth and esophagus intubated without any difficulty. The scope was gradually advanced into the stomach and duodenum. The major papilla was identified without any difficulty. Initial cannulation resulted in opacification of the common bile duct. There were at least 2 filling defects noted in the distal common bile duct measuring about 4-5 mm in size. There was mild dilation of the common bile duct but no intrahepatic biliary ductal dilation. At this time the catheter was exchanged over a guidewire and a biliary sphincterotomy was performed at 11 o'clock position and was extended to 1 mm habits. Following this 11.5 mm balloon was passed over the guidewire into the proximal CBD, gently inflated and withdrawn and there were 2 stones appeared extracted without any difficulty. Following this area. This maneuver at least 3-4 times and no other seen stones were seen exiting the ampulla. An occlusion cholangio-was performed in defects were noted. The pancreatic duct was intentionally not cannulated. Patient tolerated the procedure well. Impression: 1. Slightly dilated common bile duct with 2 filling defects measuring 5 mm in size status post biliary sphincterotomy and balloon stone extraction as described above. 2 stones were extracted 2. Pancreatic duct intentionally not cannulated Recommendations: The findings of this examination were discussed with the patient as well as a family. She was advised to be on a clear liquid diet for lunch today. Follow with the office in 2-3 weeks.
--- NOTE | 2022-12-15 08:26 | FL ---
EXAMINATION TYPE: FL ERCP DATE OF EXAM: 12/15/2022 CLINICAL HISTORY: Elevated liver enzymes. TECHNIQUE: Fluoroscopy. COMPARISON: MRCP 4 days earlier. FINDINGS: Fluoroscopic guidance was provided during ERCP procedure performed by Dr. Dwyer. A total of 71 seconds of fluoroscopic time was utilized during the procedure and 9 spot images was acquired. Total dose area product (DAP) in uGy*m?, mGy*cm? (or similar: 1.223. Please refer to procedure note for further details. IMPRESSION: As Above.
[2022-12-15] MEDS ORDERED: KETOROLAC 15 MG/ML 1 ML VIAL ONE (08:50)
[2022-12-15] MEDS ORDERED: KETOROLAC 15 MG/ML 1 ML VIAL IVP ONE ×2 (08:54→08:57)
[2022-12-15] MEDS ORDERED: droPERidol 5 MG/2 ML VIAL IVP ONE (09:27)
[2022-12-15] MEDS ORDERED: MAG HYDROX/AL HYDROX/SIMETH 30 ML CUP PO PRN (09:37)
[2022-12-15 10:39] VITALS: RESP 17
[2022-12-15 10:42] VITALS: BP 114/76; PULSE 77
== END 2022-12-15 10:20 | disposition home or self-care (01) ==
LOC: ORWHC2ENDO 05:32
PROVIDERS: ATTEND Internal Medicine Gastroenterology
DX: K80.50 Calculus of bile duct without cholangitis or cholecystitis without obstruction (principal); K21.9 Gastro-esophageal reflux disease without esophagitis; Z85.828 Personal history of other malignant neoplasm of skin; Z98.890 Other specified postprocedural states
CPT/HCPCS: 43264; 43262; 81025; 80053; 85027; 85610; 74330; J2250; J1100; J2405; J1956; J3010; J1885; J2704; Q9967; J1790; J2001

== ENCOUNTER → 2022-12-28 | Outpatient (CLI) | payer BC ==
[2022-12-29 02:15] LABS: ALT 25 U/L (8-44); AST 22 U/L (13-35); Albumin 4.5 g/dL (3.8-4.9); Alkaline Phosphatase 103 U/L (41-126); Bilirubin, Conjugated <0.20 mg/dL (0.20-0.40); Globulin 2.4 g/dL (1.6-3.3); Total Protein 6.8 g/dL (6.2-8.2)
== END | disposition home or self-care (01) ==
LOC: LABWHC1 11:46
PROVIDERS: ATTEND Nurse Practitioner Family
DX: K80.50 Calculus of bile duct without cholangitis or cholecystitis without obstruction (principal)
CPT/HCPCS: 36415; 80076

== ENCOUNTER → 2023-09-17 | Outpatient (CLI) | payer BC ==
--- NOTE | 2023-09-21 10:56 | MR ---
EXAMINATION TYPE: MR MRCP DATE OF EXAM: 09/17/2023 9:10 AM CLINICAL INDICATION:Female, 42 years old with history of K80.50 CALCULUS OF BILE DUCT W/O CHOLANGITIS OR CH, Abdominal pain, hx cholecystectomy. COMPARISON: 12/11/2022 TECHNIQUE: Multi planar, T2-weighted imaging with and without fat saturation and chemical shift imag ing was performed of the abdomen. Then, heavily T2 weighted imaging (half-Fourier acquisition single- shot turbo spin-echo) was utilized in order to study the biliary system. Maximum intensity projectio n images were reconstructed from the original data of the biliary tree. 3D images were created on a [employer] work station. No Gadolinium given. FINDINGS: Lower Thorax: No evidence for acute process. MRCP: * The intrahepatic ducts have a normal appearance. * The common bile duct at the level of the pancreatic head measures 6 mm in size. No filling defects are seen within the common bile duct on today's exam. * The common hepatic duct measures 5 mm in size. * The pancreatic duct is normal. * The gallbladder appears surgically absent. There may be a small cystic duct remnant present. Not s ignificantly changed from prior. Abdomen: Liver: Signal dropout on chemical shift in phase imaging. Pancreas: Unremarkable. Spleen: Signal dropout on chemical shift in phase imaging. Adrenal glands: Unremarkable. Kidneys: Unremarkable. Stomach and Bowel: Unremarkable as visualized. Peritoneum: No evidence of pneumoperitoneum or free fluid. Vasculature: Unremarkable. No aortic aneurysm. Musculoskeletal: The osseous structures appear intact. Lymph Nodes: No gross evidence for lymphadenopathy. Abdominal wall: Fat-containing umbilical hernia. Reproductive: Bilateral follicular changes are seen to the ovaries. The endometrium and junctional zo ne are within normal limits for thickness. IMPRESSION: 1. Possible choledocholithiasis seen on prior exam in the 12/11/2022 is no longer visualized No evide nce to suggest ductal stricture, choledocholithiasis, or biliary ductal dilatation. Small cystic duct remnant suggested. 2. Iron deposition within the liver and spleen.
== END | disposition home or self-care (01) ==
LOC: RADMRIMAIN 08:20
PROVIDERS: ATTEND Internal Medicine Gastroenterology
DX: K76.89 Other specified diseases of liver (principal); K86.89 Other specified diseases of pancreas; K80.50 Calculus of bile duct without cholangitis or cholecystitis without obstruction; Z90.49 Acquired absence of other specified parts of digestive tract
CPT/HCPCS: 74181

== ENCOUNTER → 2023-09-28 | Outpatient (CLI) | payer BC ==
[2023-09-28 18:28] LABS: ALT 17 U/L (8-44); AST 20 U/L (13-35); Albumin 4.7 g/dL (3.8-4.9); Albumin/Globulin Ratio 1.74 Ratio (1.60-3.17); Alkaline Phosphatase 76 U/L (41-126); Blood Urea Nitrogen 10.4 mg/dL (9.0-27.0); Carbon Dioxide 24.5 mmol/L (21.6-31.8); Chloride 104 mmol/L (96-109); Globulin 2.7 g/dL (1.6-3.3); Glucose 94 mg/dL (70-110); Potassium 4.1 mmol/L (3.5-5.5); Sodium 139 mmol/L (135-145); Total Bilirubin 0.4 mg/dL (0.3-1.2); Total Protein 7.4 g/dL (6.2-8.2)
[2023-09-28 19:08] LABS: Basophils # (A) 0.03 X 10*3/uL (0.00-0.10); Basophils % (A) 0.6 %; Eosinophils # (A) 0.03 X 10*3/uL (0.04-0.35); Eosinophils % (A) 0.6 %; HCT 41.5 % (37.2-46.3); HGB 13.9 g/dL (12.0-15.0); Lymphocytes # (A) 1.11 X 10*3/uL (0.90-5.00); Lymphocytes % (A) 20.7 %; MCHC 33.5 g/dL (32.0-37.0); MCV 92.6 FL (80.0-97.0); Mean Platelet Volume 10.2 FL (9.5-12.2); Monocytes # (A) 0.32 X 10*3/uL (0.20-1.00); NRBC Per 100 WBC 0 X 10*3/uL (0.00-0.01); Neutrophils # (A) 3.85 X 10*3/uL (1.80-7.70); Neutrophils % (A) 71.9 %; Platelet Count 235 X 10*3/uL (140-440); RBC 4.48 X 10*6/uL (4.10-5.20); RDW 12.4 % (11.5-14.5); WBC 5.35 X 10*3/uL (4.50-10.00)
== END | disposition home or self-care (01) ==
LOC: LABWHC1 13:30
PROVIDERS: ATTEND Nurse Practitioner Family
DX: K80.50 Calculus of bile duct without cholangitis or cholecystitis without obstruction (principal); R93.5 Abnormal findings on diagnostic imaging of other abdominal regions, including retroperitoneum
CPT/HCPCS: 36415; 80053; 85025

== ENCOUNTER → 2023-10-16 | Outpatient (CLI) | payer BC | END | disposition home or self-care (01) | LOC: LABWHC1 14:21 | PROVIDERS: ATTEND Internal Medicine Gastroenterology | DX: R93.5 Abnormal findings on diagnostic imaging of other abdominal regions, including retroperitoneum (principal) | CPT/HCPCS: 36415; 81256 ==